=== PATIENT | female | born 1980 | race Caucasian/White ===

== ENCOUNTER 2020-02-15 23:13 | Emergency (ER) | payer SELFPAY ==
[2020-02-15 23:30] VITALS: BP 120/77; PULSE 91; RESP 16; TEMP 37.1; O2SAT 99; BMI 29.2
--- NOTE | 2020-02-15 23:46 | ED_ITS ---
HPI - Back Pain/Injury General: Chief Complaint: Back Pain/Injury Stated Complaint: fall/lower back pain Time Seen by Provider: 02/15/20 23:36 History of Present Illness: HPI Narrative: 39-year-old female patient presents to the emergency department with low back pain and right sciatica pain. She reports sustained a fall yesterday, she slipped on a step and fell down 3 stairs on her bottom. She reports pain is intense, difficulty with walking, she reports right leg weakness when standing or attempting to walk. She denies urinary or bladder incontinence. She states took ibuprofen and Tylenol for pain but has not been effective. She has history of lumbar disc disease. MD elicited complaint: back pain, back injury and fall Pertinent past history: prior back pain Onset (ago): day(s) (1) Timing: constant Severity: moderate Quality: dull, stabbing and aching Location: lumbar spine Radiation: buttocks (rt) and right upper leg Exacerbating factors: movement and walking Relieving factors: immobilization Context: fall Associated symptoms: Reports no associated symptoms; Deny abdominal pain, chills, dysuria, fever(s), nausea or vomiting Treatments prior to arrival: cold therapy and heat therapy Work related injury: No Review of Systems General: Reports: 10 or more systems reviewed and unremarkable except in HPI and below Const: Denies: fever(s), chills or diaphoresis Eyes: Denies: blurry vision or eye redness ENMT: Denies: throat pain, dental pain or disequilibrium Card: Denies: chest pain, palpitations or irregular heart rhythm Resp: Denies: dyspnea, productive cough, non-productive cough or wheezing GI: Denies: abdominal pain, nausea or vomiting : Denies: difficulty voiding or dysuria Musc: Reports: back pain and extremity pain (right posterior hip); Denies: neck pain Skin/Breast: Denies: rash or pruritus Neuro: Denies: headache(s), weakness in extremities or behavioral changes Tony/Lymph: Denies: easy bruising [facility] Female Reproductive History: Date of last menstrual period: 01/29/20 Physical Exam Const: COMMON NORMALS: no acute distress, patient oriented x3, healthy appearing and alert GENERAL APPEARANCE: cooperative, comfortable and well hydrated ORIENTATION/CONSCIOUSNESS: Yes oriented to person HENMT: COMMON NORMALS: normocephalic, Normal external nose present and moist oral mucous membranes HEAD & SCALP: normocephalic NOSE: Normal external nose present Eye: COMMON NORMALS: Equal, round and reactive pupils present and EOMs intact bilaterally GENERAL EYE: appearance normal, both eyes and all related structures PUPIL: Yes Equal, round and reactive pupils present Neck/C-Spine: COMMON NORMALS: full ROM and no lymphadenopathy GENERAL: Yes normal visual inspection and Yes trachea midline CERVICAL SPINE: Yes cervical ROM normal Lymph: LYMPHATIC: no lymphadenopathy noted Chest: COMMONS NORMALS: normal inspection of the chest Resp: COMMON NORMALS: normal respiratory effort and clear to auscultation bilaterally AUSCULTATION: clear to auscultation bilaterally Cardio: COMMON NORMALS: regular rhythm, S1 normal heart sound present, S2 normal heart sound present and Peripheral pulses 2+ throughout RHYTHM: regular rhythm HEART SOUNDS: S1 normal heart sound present and S2 normal heart sound present PERIPHERAL PULSES: Peripheral pulses 2+ throughout GI: COMMON NORMALS: Soft to palpation and non-tender INSPECTION: Yes normal to inspection AUSCULTATION: Yes normoactive bowel sounds PALPATION: Yes Soft to palpation : COMMON NORMALS: Yes no CVA tenderness BLADDER/KIDNEY EXAM: Yes no CVA tenderness Back/Pelvis: COMMON NORMALS: no CVA tenderness THORACIC SPINE/UPPER BACK: Yes normal to inspection and Yes thoracic ROM normal LUMBAR SPINE/LOWER BACK: Yes normal to inspection, Yes ROM limited, Yes lumbar spinal tenderness (midline, point) Lumbar spinal tenderness location: L2, L3, L4 and L5, Yes paraspinal muscle tenderness Lumbar paraspinal muscle tenderness: right and Yes straight leg raise positive right SACROILIAC JOINTS: Yes SI joint(s) abnormal SI joint details: tender to palpation and pain elicited by compression of iliac crest maneuver Extremity: COMMON NORMALS: normal to inspection and capillary refill normal Neuro: COMMON NORMALS: patient oriented x3 and no focal motor deficits SENSORIUM/ORIENTATION: Yes alert and Yes oriented to person SPEECH: speech normal GAIT: Yes Staggering gait present (secondary to pain) MONOFILAMENT EXAM PERFORMED: Yes MOTOR EXAM: Abnormal motor strength present (RLE 3/5; LLE 5/5) Psych: COMMON NORMALS: mental status grossly normal, Normal thought process present and cooperative ACTIVITY/MOTOR BEHAVIOR: Yes appropriate eye contact THOUGHT PROCESS: Normal thought process present Skin: COMMON NORMALS: no rashes or lesions noted and turgor normal GENERAL SKIN EXAM: no rashes or lesions noted and turgor normal Course ED course: 39-year-old female patient presents to the emergency department with low back pain. Fall was sustained yesterday, several stairs on her bottom, presented to the emergency department with worsening back pain today. Lumbar spine CT without acute fracture or disc disease. Results of CT lumbar spine and plan of care discussed with patient. She agrees to follow-up with her primary care physician in 7 days. Agrees to follow-up with emergency department if she develops loss of movement of the right leg, develops bowel or bladder incontinence. Vital Signs: Vital signs: Vital Signs Temperature 98.7 F 02/15/20 23:30 Pulse Rate 77 02/16/20 01:09 Respiratory Rate 14 02/16/20 01:09 Blood Pressure 118/64 02/16/20 01:09 Pulse Oximetry 100 02/16/20 01:09 MDM - Back Pain/Injury Differential Diagnosis: Differential diagnosis back pain/injury: Likely lumbar radiculopathy and sciatica Imaging Data^: Other CT: Radiologist's impression: [place] [address] CT Scan Report Signed Patient: Nelli Mcmahan #: [id number] : 1980Acct#:[id number] Age/Sex: 39 / FADM Date: 02/15/20 [facility] Attending Dr: Ordering Provider/Ordering MD: Zeynep Almaguer Date of Service: 02/15/20 Procedure(s): CT lumbar spine wo con* [id number] Accession Number(s): [id number] Report Number: [id number] PROCEDURE INFORMATION: Exam: CT Lumbar Spine Without Contrast Exam date and time: 02/15/2020 11:47 PM Age: 39 years old Clinical indication: Injury or trauma; Initial encounter; Blunt trauma (contusions or hematomas); Injury date: 02-14-20; Injury details: Fall down stairs yesterday; Additional info: Fall, lle weakness TECHNIQUE: Imaging protocol: Computed tomography images of the lumbar spine without contrast. Radiation optimization: All CT scans at this facility use at least one of these dose optimization techniques: automated exposure control; mA and/or kV adjustment per patient size (includes targeted exams where dose is matched to clinical indication); or iterative reconstruction. COMPARISON: No relevant prior studies available. RADIATION DOSE METRICS: Total DLP (mGy-cm): 2570.58 FINDINGS: Vertebrae: No visible fracture, subluxation, or dislocation. Discs/Spinal canal/Neural foramina: No significant disc protrusion. No severe spinal canal stenosis. No significant neural foraminal narrowing. Sacrum/coccyx: Small sacral bone island. Soft tissues: Unremarkable. CT/CT lumbar spine wo con* [id number] IMPRESSION: 1. No visible fracture, subluxation, or dislocation. 2. No visible traumatic disc herniation or spinal stenosis. Radiation Dose CTDIVOL = (mGy): DLP = 2570.58 (mGy-cm) Dictated By:Elias Oliver Signed By:Elias OliverSiobie Date/Time:02/16/2026 Discharge Plan Discharge Patient Disposition: Home Clinical Impression: Fall (on) (from) other stairs and steps, initial encounter Strain of lumbar region Qualifiers: Encounter type: initial encounter Qualified Code(s): S39.012A - Strain of muscle, fascia and tendon of lower back, initial encounter Sciatica Qualifiers: Laterality: right Qualified Code(s): M54.31 - Sciatica, right side Condition: Stable Prescriptions: New IBU 800 mg tablet 800 mg PO TID PRN (Reason: pain) Qty: 30 RF: 0 cyclobenzaprine 10 mg tablet 10 mg PO TID PRN (Reason: muscle spasm) Qty: 20 RF: 0 Discharge Orders: Discharge Order (Routine); Ordered 02/16/20 Ordered By: Zeynep Almaguer Discharge Diet: Usual diet Discharge Activity: Resume usual activity and Limit activity as instructed Patient Instructions: Sciatica (ED), Lumbar Radiculopathy (ED), Fall Prevention (ED) Activity Restrictions/Additional Instructions: No twisting or bending of the waist until better No lifting over 5 pounds Apply cool compresses/alternate with warm moist heat to the affected area as needed for pain Take ibuprofen with food May supplement with Tylenol, 1 g 3 times daily as needed for pain, do not exceed this dose You will need to follow-up with your primary care provider in 7 days, sooner if worse If you develop urinary or bowel incontinence, worsening back pain, inability to move your leg, you will need return to the emergency department immediately for further evaluation Stand Alone Forms: Work/School Release Discharge Date/Time: 02/16/20 01:11 Coding Level of Care Code ED Director [employer] Fwd Exam Comprehensive
[2020-02-16] MEDS: HYDROcodone-acetaminophen 5-325 mg Tablet 1 TAB PO (00:20)
[2020-02-16 01:09] VITALS: BP 118/64; PULSE 77; RESP 14; O2SAT 100
== END 2020-02-16 01:11 | disposition home or self-care (01) ==
PROVIDERS: Emergency Provider Nurse Practitioner Family
DX: S39.012A Strain of muscle, fascia and tendon of lower back, initial encounter (principal); M54.31 Sciatica, right side; W01.0XXA Fall on same level from slipping, tripping and stumbling without subsequent striking against object, initial encounter
CPT/HCPCS: 12345; 72131; 99281; 99283

== ENCOUNTER 2020-06-24 17:10 | Emergency (ER) | payer SELFPAY ==
[2020-06-24 17:16] VITALS: BP 152/91; PULSE 80; RESP 16; TEMP 36.8; O2SAT 100; BMI 28.3
--- NOTE | 2020-06-24 17:22 | ED_ITS ---
Documented by User: Lorenzo Day DO 06/25/20 06:13 HPI - Abdominal Pain General: Chief Complaint: Abdominal Pain Stated Complaint: SEVERE AB PAIN Time Seen by Provider: 06/24/20 17:22 History of Present Illness: HPI narrative: 40-year-old female comes in complaining of left pain in the groin medial to the inguinal crease. It radiates down the medial thigh to the level of the knee and then proximally across the hip around the buttock to the lower lumbar spine. He had her period a week ago seem to mostly resolved. She recently had her period which was largely normal for her. She previously had a tubal ligation. MD elicited complaint: other Pertinent past history: other (Ovarian cysts) Onset (ago): hour(s) Pain Consistency: constant Location: Groin Quality: stabbing and sharp Radiation: other (Right medial upper leg) Migration to: no migration Exacerbating factors: nothing Relieving factors: nothing Associated Symptoms: Reports nausea and poor appetite; Denies bloating, change in bowel habits, change in stool character, chills, coffee ground emesis, constipation, GI cramping, diarrhea, dyspepsia, dysuria, excessive flatus, fever(s), heartburn, hematochezia, hematuria, hematemesis, fecal incontinence, loose stools, melena, syncope and vomiting Related Data: Date of Last Menstrual Period: 06/23/20 Review of Systems Const: Denies: fever(s) or chills ENMT: Denies: throat pain, ear or mastoid pain, nasal discharge or nasal congestion Card: Denies: syncope Resp: Denies: dyspnea, productive cough or non-productive cough GI: Reports: nausea; Denies: vomiting, hematemesis, coffee ground emesis, heartburn, diarrhea, constipation, bloating, GI cramping, excessive flatus, fecal incontinence, change in bowel habits, change in stool character, hematochezia or melena : Denies: dysuria Skin/Breast: Denies: rash or pruritus PFSH ED PFSH: Surgical History (Updated 06/25/20 @ 06:10 by Lorenzo Day DO) H/O tubal ligation Female Reproductive History: Date of last menstrual period: 06/23/20 Physical Exam Const: COMMON NORMALS: no acute distress GENERAL APPEARANCE: cooperative and comfortable ORIENTATION/CONSCIOUSNESS: Yes awake, Yes oriented to person, Yes oriented to place and Yes oriented to time HENMT: COMMON NORMALS: normocephalic, atraumatic and hearing grossly normal bilaterally HEAD & SCALP: normocephalic and atraumatic Eye: COMMON NORMALS: Equal, round and reactive pupils present, EOMs intact bilaterally, conjunctivae normal and no scleral icterus CONJUNCTIVA: Yes conjunctivae normal PUPIL: Yes Equal, round and reactive pupils present Neck/C-Spine: COMMON NORMALS: full ROM, no lymphadenopathy, supple and no JVD Resp: COMMON NORMALS: normal respiratory effort, No retractions, No use of accessory muscles and clear to auscultation bilaterally AUSCULTATION: clear to auscultation bilaterally Cardio: COMMON NORMALS: no JVD, regular rate, regular rhythm and No murmurs present (Cardio) RATE: regular rate RHYTHM: regular rhythm GI: COMMON NORMALS: Soft to palpation and No hepatosplenomegaly present AUSCULTATION: Yes normoactive bowel sounds PALPATION: Yes Soft to palpation, No Tenderness to palpation present (GI), No Guarding due to palpation present (GI) and Yes No hepatosplenomegaly present Extremity: COMMON NORMALS: normal to inspection, capillary refill normal, no clubbing, cyanosis or edema, no calf tenderness and no pedal edema Neuro: SENSORIUM/ORIENTATION: Yes oriented to person, Yes oriented to place and Yes oriented to time MOTOR EXAM: 5/5 motor strength present throughout DEEP TENDON REFLEXES: Right patellar reflex intensity grade: 2+ and Left patellar reflex intensity grade: 2+ PLANTAR REFLEX: downgoing: bilateral and other: bilateral OTHER: Straight leg raising test is negative. Sensation lower extremities normal Skin: COMMON NORMALS: no rashes or lesions noted GENERAL SKIN EXAM: no rashes or lesions noted Course Vital Signs: Vital signs: Vital Signs Temperature 98.2 F 06/24/20 17:16 Pulse Rate 59 L 06/24/20 22:09 Respiratory Rate 18 06/24/20 22:09 Blood Pressure 103/69 06/24/20 22:09 Pulse Oximetry 98 06/24/20 22:09 MDM - Abdominal Pain MDM Narrative: Medical decision making narrative: Patient is concerned she has an ovarian cyst however her presentation is not really consistent with an ovarian cyst or even really pelvic pathology. Given her history we will go ahead and do a pelvic ultrasound. More concerned of her description of pain radiating from the buttock down around the hip and the medial portion of the right thigh down to the level of the knee with it being a lumbar nerve impingement. Pain medications given's imaging pelvic ultrasound and CT of the lumbar spine have been ordered. care turned over to Dr. Tai at change of shift see his notes for final diagnosis and disposition. Lab Data: Labs: Lab Results 06/24/20 06/24/20 06/24/20 Range/Units 17:50 17:50 17:50 WBC 7.5 (4.0-10.0) 10^3/ uL RBC 4.15 (4.1-5.3) 10^6/u L Hgb 9.8 L (11.5-15.3) g/dL Hct 32.7 L (37.0-47.0) % MCV 78.8 L (81-99) fL MCH 23.6 L (28.0-34.0) pg MCHC 30.0 (30.0-36.0) g/dL RDW 16.8 H (12.1-15.1) % Plt Count 356 (130-400) 10^3/c mm MPV 9.8 (7.4-10.4) fL Neut % (Auto) 44.1 % Lymph % (Auto) 46.2 % Posey % (Auto) 6.8 % Eos % (Auto) 1.9 % Baso % (Auto) 0.7 % Neut # (Auto) 3.32 (1.8-7.7) 10^3/u L Lymph # (Auto) 3.5 (0.8-4.8) 10^3/u L Posey # (Auto) 0.5 (0.2-0.9) 10^3/u L Eos # (Auto) 0.1 (0.0-0.8) 10^3/u L Baso # (Auto) 0.1 (0.0-0.1) 10^3/u L Nucleated RBC % (a uto) 0 % Nucleated RBCs # 0.0 /100WBC Sodium 142 (136-145) mmol/L Potassium 4.0 (3.5-5.1) mmol/L Chloride 109 H (98-107) mmol/L Carbon Dioxide 23 (22-29) mmol/L Anion Gap 14.0 (5-19) BUN 9 (6-20) mg/dL Creatinine 0.8 (0.5-0.9) mg/dL GFR Calculation 79.9 L (90-130) mL/min Glucose 95 (65-115) mg/dL Calculated Osmolal ity 292 (285-295) mOsm/k g Calcium 8.9 (8.5-10.5) mg/dL Total Bilirubin 0.2 (0.15-1.2) mg/dL AST 11 (0-32) U/L ALT 8 (0-33) U/L Alkaline Phosphata se 48 (35-105) IU/L Total Protein 6.3 L (6.6-8.7) g/dL Albumin 3.9 (3.5-5.2) g/dL Globulin 2.4 (1.3-4.6) g/dL HCG, Qual Negative (Negative) Urine Color (Yellow) Urine Appearance (CLEAR) Urine pH (5-7) Ur Specific Gravit y (1.005-1.030) Urine Protein (Negative) Urine Glucose (UA) (Normal) Urine Ketones (Negative) Urine Blood (Negative) Urine Nitrate (Negative) Urine Bilirubin (Negative) Urine Urobilinogen (Negative) mg/dL Ur Leukocyte Concetta ase (Negative) 06/24/20 Range/Units 18:47 WBC (4.0-10.0) 10^3/ uL RBC (4.1-5.3) 10^6/u L Hgb (11.5-15.3) g/dL Hct (37.0-47.0) % MCV (81-99) fL MCH (28.0-34.0) pg MCHC (30.0-36.0) g/dL RDW (12.1-15.1) % Plt Count (130-400) 10^3/c mm MPV (7.4-10.4) fL Neut % (Auto) % Lymph % (Auto) % Posey % (Auto) % Eos % (Auto) % Baso % (Auto) % Neut # (Auto) (1.8-7.7) 10^3/u L Lymph # (Auto) (0.8-4.8) 10^3/u L Posey # (Auto) (0.2-0.9) 10^3/u L Eos # (Auto) (0.0-0.8) 10^3/u L Baso # (Auto) (0.0-0.1) 10^3/u L Nucleated RBC % (a uto) % Nucleated RBCs # /100WBC Sodium (136-145) mmol/L Potassium (3.5-5.1) mmol/L Chloride (98-107) mmol/L Carbon Dioxide (22-29) mmol/L Anion Gap (5-19) BUN (6-20) mg/dL Creatinine (0.5-0.9) mg/dL GFR Calculation (90-130) mL/min Glucose (65-115) mg/dL Calculated Osmolal ity (285-295) mOsm/k g Calcium (8.5-10.5) mg/dL Total Bilirubin (0.15-1.2) mg/dL AST (0-32) U/L ALT (0-33) U/L Alkaline Phosphata se (35-105) IU/L Total Protein (6.6-8.7) g/dL Albumin (3.5-5.2) g/dL Globulin (1.3-4.6) g/dL HCG, Qual (Negative) Urine Color Straw (Yellow) Urine Appearance Clear (CLEAR) Urine pH 5 (5-7) Ur Specific Gravit y 1.010 (1.005-1.030) Urine Protein Neg (Negative) Urine Glucose (UA) Norm (Normal) Urine Ketones Negative (Negative) Urine Blood Neg (Negative) Urine Nitrate Negative (Negative) Urine Bilirubin Neg (Negative) Urine Urobilinogen Norm (Negative) mg/dL Ur Leukocyte Concetta ase Negative (Negative) Discharge Plan Discharge Patient Disposition: Home Clinical Impression: Abdominal pain Qualifiers: Abdominal location: generalized Qualified Code(s): R10.84 - Generalized abdominal pain Condition: Stable Prescriptions: [place] 5-325 mg tablet 1 tab PO Q6H PRN (Reason: pain) Qty: 14 RF: 0 ondansetron 4 mg tablet,disintegrating 4 mg PO Q6H PRN (Reason: nausea and vomiting) Qty: 14 RF: 0 No Action Tylenol 325 mg Capsule 325 mg PO BID PRN (Reason: Pain) RF: 0 IBU 800 mg tablet 800 mg PO BID PRN (Reason: pain) RF: 0 Discharge Orders: Discharge ED (Routine); Ordered 06/24/20 Ordered By: Sanchez Tai Discharge Diet: Advance as tolerated Discharge Activity: Resume usual activity Patient Instructions: Abdominal Pain (ED) Coding Level of Care Code ED [employer] Operator for Chg Fwd Exam Comprehensive Documented by User: Sanchez Tai MD 06/24/20 21:41 HPI - Abdominal Pain General: Chief Complaint: Abdominal Pain Stated Complaint: SEVERE AB PAIN Time Seen by Provider: 06/24/20 17:22 [facility] ED PFSH: Surgical History (Updated 06/25/20 @ 06:10 by Lorenzo Day DO) H/O tubal ligation Physical Exam Const: COMMON NORMALS: no acute distress, patient oriented x3 and healthy appearing HENMT: COMMON NORMALS: normocephalic and atraumatic HEAD & SCALP: normocephalic and atraumatic Eye: COMMON NORMALS: Equal, round and reactive pupils present and EOMs intact bilaterally PUPIL: Yes Equal, round and reactive pupils present Neck/C-Spine: COMMON NORMALS: full ROM and supple Chest: COMMONS NORMALS: normal inspection of the chest and normal palpation of entire chest wall Resp: COMMON NORMALS: normal respiratory effort, No retractions, No use of accessory muscles and clear to auscultation bilaterally AUSCULTATION: clear to auscultation bilaterally Cardio: COMMON NORMALS: regular rate, regular rhythm and No murmurs present (Cardio) RATE: regular rate RHYTHM: regular rhythm GI: COMMON NORMALS: Normal to inspection, nondistended, normoactive bowel sounds present, Soft to palpation and no masses PALPATION: Yes Soft to palpation OTHER: Slight right lower quadrant tenderness Extremity: COMMON NORMALS: normal to inspection and full ROM Neuro: COMMON NORMALS: patient oriented x3, moves all extremities and no focal motor deficits Psych: COMMON NORMALS: mental status grossly normal, Normal thought process present and cooperative THOUGHT PROCESS: Normal thought process present Skin: COMMON NORMALS: no rashes or lesions noted and no wounds GENERAL SKIN EXAM: no rashes or lesions noted Course Vital Signs: Vital signs: Vital Signs Temperature 98.2 F 06/24/20 17:16 Pulse Rate 59 L 06/24/20 22:09 Respiratory Rate 18 06/24/20 22:09 Blood Pressure 103/69 06/24/20 22:09 Pulse Oximetry 98 06/24/20 22:09 MDM - Abdominal Pain MDM Narrative: Medical decision making narrative: Patient presents with abdominal pain. There was concern of possible torsion at first. Patient was seen by OB and history exam is just not consistent had another ultrasound done that was transabdominal. Was able to find the ovary and found good blood flow. Patient's CT here showed no acute findings. Her pain is improved. She has no sign of acute surgical cause. She is stable for discharge and is to follow-up P CP and return if worsening. Lab Data: Labs: Lab Results 06/24/20 06/24/20 06/24/20 Range/Units 17:50 17:50 17:50 WBC 7.5 (4.0-10.0) 10^3/ uL RBC 4.15 (4.1-5.3) 10^6/u L Hgb 9.8 L (11.5-15.3) g/dL Hct 32.7 L (37.0-47.0) % MCV 78.8 L (81-99) fL MCH 23.6 L (28.0-34.0) pg MCHC 30.0 (30.0-36.0) g/dL RDW 16.8 H (12.1-15.1) % Plt Count 356 (130-400) 10^3/c mm MPV 9.8 (7.4-10.4) fL Neut % (Auto) 44.1 % Lymph % (Auto) 46.2 % Posey % (Auto) 6.8 % Eos % (Auto) 1.9 % Baso % (Auto) 0.7 % Neut # (Auto) 3.32 (1.8-7.7) 10^3/u L Lymph # (Auto) 3.5 (0.8-4.8) 10^3/u L Posey # (Auto) 0.5 (0.2-0.9) 10^3/u L Eos # (Auto) 0.1 (0.0-0.8) 10^3/u L Baso # (Auto) 0.1 (0.0-0.1) 10^3/u L Nucleated RBC % (a uto) 0 % Nucleated RBCs # 0.0 /100WBC Sodium 142 (136-145) mmol/L Potassium 4.0 (3.5-5.1) mmol/L Chloride 109 H (98-107) mmol/L Carbon Dioxide 23 (22-29) mmol/L Anion Gap 14.0 (5-19) BUN 9 (6-20) mg/dL Creatinine 0.8 (0.5-0.9) mg/dL GFR Calculation 79.9 L (90-130) mL/min Glucose 95 (65-115) mg/dL Calculated Osmolal ity 292 (285-295) mOsm/k g Calcium 8.9 (8.5-10.5) mg/dL Total Bilirubin 0.2 (0.15-1.2) mg/dL AST 11 (0-32) U/L ALT 8 (0-33) U/L Alkaline Phosphata se 48 (35-105) IU/L Total Protein 6.3 L (6.6-8.7) g/dL Albumin 3.9 (3.5-5.2) g/dL Globulin 2.4 (1.3-4.6) g/dL HCG, Qual Negative (Negative) Urine Color (Yellow) Urine Appearance (CLEAR) Urine pH (5-7) Ur Specific Gravit y (1.005-1.030) Urine Protein (Negative) Urine Glucose (UA) (Normal) Urine Ketones (Negative) Urine Blood (Negative) Urine Nitrate (Negative) Urine Bilirubin (Negative) Urine Urobilinogen (Negative) mg/dL Ur Leukocyte Concetta ase (Negative) 06/24/20 Range/Units 18:47 WBC (4.0-10.0) 10^3/ uL RBC (4.1-5.3) 10^6/u L Hgb (11.5-15.3) g/dL Hct (37.0-47.0) % MCV (81-99) fL MCH (28.0-34.0) pg MCHC (30.0-36.0) g/dL RDW (12.1-15.1) % Plt Count (130-400) 10^3/c mm MPV (7.4-10.4) fL Neut % (Auto) % Lymph % (Auto) % Posey % (Auto) % Eos % (Auto) % Baso % (Auto) % Neut # (Auto) (1.8-7.7) 10^3/u L Lymph # (Auto) (0.8-4.8) 10^3/u L Posey # (Auto) (0.2-0.9) 10^3/u L Eos # (Auto) (0.0-0.8) 10^3/u L Baso # (Auto) (0.0-0.1) 10^3/u L Nucleated RBC % (a uto) % Nucleated RBCs # /100WBC Sodium (136-145) mmol/L Potassium (3.5-5.1) mmol/L Chloride (98-107) mmol/L Carbon Dioxide (22-29) mmol/L Anion Gap (5-19) BUN (6-20) mg/dL Creatinine (0.5-0.9) mg/dL GFR Calculation (90-130) mL/min Glucose (65-115) mg/dL Calculated Osmolal ity (285-295) mOsm/k g Calcium (8.5-10.5) mg/dL Total Bilirubin (0.15-1.2) mg/dL AST (0-32) U/L ALT (0-33) U/L Alkaline Phosphata se (35-105) IU/L Total Protein (6.6-8.7) g/dL Albumin (3.5-5.2) g/dL Globulin (1.3-4.6) g/dL HCG, Qual (Negative) Urine Color Straw (Yellow) Urine Appearance Clear (CLEAR) Urine pH 5 (5-7) Ur Specific Gravit y 1.010 (1.005-1.030) Urine Protein Neg (Negative) Urine Glucose (UA) Norm (Normal) Urine Ketones Negative (Negative) Urine Blood Neg (Negative) Urine Nitrate Negative (Negative) Urine Bilirubin Neg (Negative) Urine Urobilinogen Norm (Negative) mg/dL Ur Leukocyte Concetta ase Negative (Negative) Imaging Data ^: Other CT: Radiologist's impression: [facility] [place] [address] CT Scan Report Signed Patient: Ania Mcmahan Unit #: [id number] : 1980 Age/Sex: 40 / F ADM Date: 06/24/20 Loc: ER Room/Bed: Attending Dr: Ordering Provider/Ordering MD: Lorenzo Day DO Date of Service: 06/24/20 Procedure(s): CT lumbar spine wo con* [id number] Accession Number(s): [id number] Report Number: [id number] PROCEDURE INFORMATION: Exam: CT Lumbar Spine Without Contrast Exam date and time: 06/24/2020 5:42 PM Age: 40 years old Clinical indication: Low back pain; Patient HX: C/O lbp w rle radiculopathy; Additional info: Pain with radiculopathy TECHNIQUE: Imaging protocol: Computed tomography images of the lumbar spine without contrast. Total images: 405 Radiation optimization: All CT scans at this facility use at least one of these dose optimization techniques: automated exposure control; mA and/or kV adjustment per patient size (includes targeted exams where dose is matched to clinical indication); or iterative reconstruction. COMPARISON: CT lumbar spine wo con* [id number] 02/15/2020 11:52 PM RADIATION DOSE METRICS: Total DLP (mGy-cm): 2302.58 FINDINGS: Vertebrae: No visible active or acute osseous pathology. No visible spondylolysis or spondylolisthesis. No visible significant facet disease. Minimal spondylosis deformans T12 and L1. Discs/Spinal canal/Neural foramina: No visible herniated nucleus pulposis or significant posterior annular disc bulge. No significant disc protrusion. No severe spinal canal stenosis. No significant neural foraminal narrowing. Sacrum/coccyx: Small sacral bone island. Soft tissues: Unremarkable. CT/CT lumbar spine wo con* [id number] IMPRESSION: No acute findings. US: Radiologist's impression: [address] [place] [address] Ultrasound Report Signed with Addenda Patient: Ania Mcmahan Unit #: [id number] : 1980 327 Age/Sex: 40 / F ADM Date: 06/24/20 Loc: ER Room/Bed: Attending Dr: Ordering Provider/Ordering MD: Lorenzo Day DO Date of Service: 06/24/20 Procedure(s): US pelvic with transvaginal Accession Number(s): [id number] Report Number: [id number] ADDENDUM US/US pelvic with transvaginal THIS REPORT CONTAINS FINDINGS THAT MAY BE CRITICAL TO PATIENT CARE. The findings were verbally communicated via telephone conference with Dr. Tai at 6:55 PM [employer] B[employer] ASSEMBLER on 06/24/2020. The findings were acknowledged and understood. Addendum Dictated By: Elias Oliver Addendum Signed By: Elias Oliver Signed Date/Time: 06/24/20 190 8 Addendum Cosigned By: PROCEDURE INFORMATION: Exam: US Nonobstetric Pelvis; Complete Exam date and time: 06/24/2020 6:28 PM Age: 40 years old Clinical indication: Pelvic pain TECHNIQUE: Imaging protocol: Transabdominal pelvic nonobstetric ultrasound. Complete exam. Real time ultrasound with image documentation. Total images: 58 COMPARISON: No relevant prior studies available. FINDINGS: Uterus/cervix: Anteverted multiparous appearing uterus dimensions 7.8 cm x 4.3 cm x 5.2 cm. Endometrial stripe is normal. No endometrial fluid. Endometrial thickness 8 mm in maximum diameter. Right adnexa: No vascular flow to color or Doppler assessment. Potential right ovarian torsion; although, this would be unusual without the presence of free fluid in the cul-de-sac. No visible right ovarian dominant cyst or mass. Dimensions of the right ovary 29 mm x 21 mm x 26 mm. No visible right adnexal mass or cystic lesion. Left adnexa: Left ovary is normal. No mass. Normal blood flow. Left ovary measures 28 mm x 22 mm x 24 mm. No visible adnexal mass or cystic lesion. Intraperitoneal space: No intraperitoneal fluid. Urinary bladder: Not imaged. US/US pelvic with transvaginal IMPRESSION: No vascular flow to color or Doppler assessment right ovary. Discharge Plan Discharge Patient Disposition: Home Clinical Impression: Abdominal pain Qualifiers: Abdominal location: generalized Qualified Code(s): R10.84 - Generalized abdominal pain Condition: Stable Prescriptions: [place] 5-325 mg tablet 1 tab PO Q6H PRN (Reason: pain) Qty: 14 RF: 0 ondansetron 4 mg tablet,disintegrating 4 mg PO Q6H PRN (Reason: nausea and vomiting) Qty: 14 RF: 0 No Action Tylenol 325 mg Capsule 325 mg PO BID PRN (Reason: Pain) RF: 0 IBU 800 mg tablet 800 mg PO BID PRN (Reason: pain) RF: 0 Discharge Orders: Discharge ED (Routine); Ordered 06/24/20 Ordered By: Sanchez Tai Discharge Diet: Advance as tolerated Discharge Activity: Resume usual activity Patient Instructions: Abdominal Pain (ED) Coding Level of Care Code ED [employer] Drill Operator for Thomas Fweder Exam Comprehensive
--- NOTE | 2020-06-24 17:29 | USR_ITS ---
PROCEDURE INFORMATION: Exam: US Nonobstetric Pelvis; Complete Exam date and time: 06/24/2020 6:28 PM Age: 40 years old Clinical indication: Pelvic pain TECHNIQUE: Imaging protocol: Transabdominal pelvic nonobstetric ultrasound. Complete exam. Real time ultrasound with image documentation. Total images: 58 COMPARISON: No relevant prior studies available. FINDINGS: Uterus/cervix: Anteverted multiparous appearing uterus dimensions 7.8 cm x 4.3 cm x 5.2 cm. Endometrial stripe is normal. No endometrial fluid. Endometrial thickness 8 mm in maximum diameter. Right adnexa: No vascular flow to color or Doppler assessment. Potential right ovarian torsion; although, this would be unusual without the presence of free fluid in the cul-de-sac. No visible right ovarian dominant cyst or mass. Dimensions of the right ovary 29 mm x 21 mm x 26 mm. No visible right adnexal mass or cystic lesion. Left adnexa: Left ovary is normal. No mass. Normal blood flow. Left ovary measures 28 mm x 22 mm x 24 mm. No visible adnexal mass or cystic lesion. Intraperitoneal space: No intraperitoneal fluid. Urinary bladder: Not imaged. US/US pelvic with transvaginal IMPRESSION: No vascular flow to color or Doppler assessment right ovary.
--- NOTE | 2020-06-24 17:39 | CTR_ITS ---
PROCEDURE INFORMATION: Exam: CT Lumbar Spine Without Contrast Exam date and time: 06/24/2020 5:42 PM Age: 40 years old Clinical indication: Low back pain; Patient HX: C/O lbp w rle radiculopathy; Additional info: Pain with radiculopathy TECHNIQUE: Imaging protocol: Computed tomography images of the lumbar spine without contrast. Total images: 405 Radiation optimization: All CT scans at this facility use at least one of these dose optimization techniques: automated exposure control; mA and/or kV adjustment per patient size (includes targeted exams where dose is matched to clinical indication); or iterative reconstruction. COMPARISON: CT lumbar spine wo con* [id number] 02/15/2020 11:52 PM RADIATION DOSE METRICS: Total DLP (mGy-cm): 2302.58 FINDINGS: Vertebrae: No visible active or acute osseous pathology. No visible spondylolysis or spondylolisthesis. No visible significant facet disease. Minimal spondylosis deformans T12 and L1. Discs/Spinal canal/Neural foramina: No visible herniated nucleus pulposis or significant posterior annular disc bulge. No significant disc protrusion. No severe spinal canal stenosis. No significant neural foraminal narrowing. Sacrum/coccyx: Small sacral bone island. Soft tissues: Unremarkable. CT/CT lumbar spine wo con* [id number] IMPRESSION: No acute findings. Radiation Dose CTDIVOL = (mGy): DLP = 2302.58 (mGy-cm)
[2020-06-24 18:03] LABS: Basophils # 0.1 10^3/uL (0.0-0.1); Basophils % 0.7 %; Eosinophils # 0.1 10^3/uL (0.0-0.8); Eosinophils % 1.9 %; Hematocrit 32.7 % (37.0-47.0); Hemoglobin 9.8 g/dL (11.5-15.3); Lymphocytes # 3.5 10^3/uL (0.8-4.8); Lymphocytes % 46.2 %; Mean Corpuscular Hemoglobin 23.6 pg (28.0-34.0); Mean Corpuscular Volume 78.8 fL (81-99); Mean Platelet Volume 9.8 fL (7.4-10.4); Monocytes # 0.5 10^3/uL (0.2-0.9); Monocytes % 6.8 %; Neutrophils # 3.32 10^3/uL (1.8-7.7); Neutrophils % 44.1 %; Nucleated Red Blood Cells % 0 %; Platelet Count 356 10^3/cmm (130-400); Red Blood Count 4.15 10^6/uL (4.1-5.3); Red Cell Distribution Width 16.8 % (12.1-15.1); White Blood Count 7.5 10^3/uL (4.0-10.0)
[2020-06-24 18:11] VITALS: RESP 18
[2020-06-24] MEDS: morphine 4 mg/mL SDV 1 mL IVP ×2 (18:11→21:23)
[2020-06-24] MEDS: ketorolac 30 mg/mL INJ IVP (18:11)
[2020-06-24 18:12] LABS: HCG, Serum Qual Negative (Negative)
[2020-06-24] MEDS: orphenadrine 30 mg/mL Inj 2 mL 60 MG IVP (18:12)
[2020-06-24] MEDS: ondansetron 2 mg/ML SDV 2 mL 4 MG IVP (18:12)
[2020-06-24 18:23] LABS: Alanine Aminotransferase 8 U/L (0-33); Albumin Level 3.9 g/dL (3.5-5.2); Alkaline Phosphatase 48 IU/L (35-105); Aspartate Amino Transferase 11 U/L (0-32); Blood Urea Nitrogen 9 mg/dL (6-20); Calcium 8.9 mg/dL (8.5-10.5); Carbon Dioxide 23 mmol/L (22-29); Chloride 109 mmol/L (98-107); Globulin 2.4 g/dL (1.3-4.6); Glomerular Filtration Rate 79.9 mL/min (90-130); Glucose 95 mg/dL (65-115); Osmolality Calculated 292 mOsm/kg (285-295); Sodium 142 mmol/L (136-145); Total Bilirubin 0.2 mg/dL (0.15-1.2); Total Protein 6.3 g/dL (6.6-8.7)
--- NOTE | 2020-06-24 18:45 | PC.NURSE ---
ultrasound completed patient tolerated well.
[2020-06-24 18:49] LABS: Add Urine Microscopic? NO
[2020-06-24 18:54] LABS: Bilirubin Urine Neg (Negative); Blood Urine Neg (Negative); Glucose Urine UA Norm (Normal); Ketones Urine Negative (Negative); Leukocyte Esterase Urine Negative (Negative); Nitrate Urine Negative (Negative); Protein Urine Neg (Negative); Urine Appearance Clear (CLEAR); Urine Color Straw (Yellow); Urobilinogen Urine Norm (Negative); pH Urine 5 (5-7)
[2020-06-24 19:02] VITALS: BP 121/67; PULSE 59; O2SAT 98
--- NOTE | 2020-06-24 20:50 | CTR_ITS ---
PROCEDURE INFORMATION: Exam: CT Abdomen And Pelvis With Contrast Exam date and time: 06/24/2020 8:51 PM Age: 40 years old Clinical indication: Abdominal pain; Localized; Right lower quadrant (rlq); Prior surgery; Surgery type: Gb. Tubal. ; Patient HX: Rlq pain; Additional info: Abd pain TECHNIQUE: Imaging protocol: Computed tomography of the abdomen and pelvis with intravenous contrast. Total images: 249 Radiation optimization: All CT scans at this facility use at least one of these dose optimization techniques: automated exposure control; mA and/or kV adjustment per patient size (includes targeted exams where dose is matched to clinical indication); or iterative reconstruction. Contrast material: OMNI 300; Contrast volume: 95 ml; Contrast route: INTRAVENOUS (IV); COMPARISON: US pelvic with transvaginal 06/24/2020 6:15 PM RADIATION DOSE METRICS: Total DLP (mGy-cm): 887.29 FINDINGS: Lungs: Limited assessment of the lung bases fails to reveal evidence for active cardiopulmonary process. Liver: Unremarkable. No mass. Gallbladder and bile ducts: Status post cholecystectomy. Pancreas: Normal. No ductal dilation. Spleen: Normal. No splenomegaly. Adrenal glands: Normal. No mass. Kidneys and ureters: No hydronephrosis or perinephric fluid. No visible nephrolithiasis. No visible ureterolithiasis. Rare small simple renal cortical cysts bilaterally. Dominant on the left measures only 7 mm. No follow-up recommended. Stomach and bowel: Assessment of the hollow viscus fails to reveal evidence of active or acute pathology. Nonobstructed bowel pattern. No visible acute diverticulitis. No visible adynamic or reactive ileus. Appendix: The appendix is visualized and appears noninflamed. Intraperitoneal space: No visible pneumoperitoneum. No visible intraperitoneal ascites. No visible evidence of mesenteric lymphadenitis or active mesenteritis/panniculitis. Vasculature: Unremarkable. No abdominal aortic aneurysm. Lymph nodes: No current visible evidence of active mesenteric or retroperitoneal lymphadenopathy. Urinary bladder: Urinary bladder unremarkable. Reproductive: Unremarkable as visualized. Bones/joints: No visible evidence of active or acute osseous pathology. Soft tissues: Unremarkable. CT/CT abdomen pelvis w con* [id number] IMPRESSION: Currently no visible evidence of active or acute abdominal or pelvic pathologic process. COMMENTS: Consistent with the [employer]'s Incidental Findings Committee white paper (J Am Moises Radiol 2018): Any incidental renal lesion less than 1 cm or classified as too small to characterize, or any incidental cystic renal lesion characterized as simple-appearing, is likely benign. No follow-up imaging is recommended for these lesions per consensus recommendations based on imaging criteria. Radiation Dose CTDIVOL = (mGy): DLP = 887.29 (mGy-cm)
[2020-06-24] MEDS: iohexol 300 mg/mL 100 mL Btl IV (20:58)
--- NOTE | 2020-06-24 21:01 | P.CONIM_ITS ---
Providers/Reason For Consult Consulting Physican/Specialty*: selena OB-STRUCTURAL TEST ENGINEER Reason for Consult*: Possible right ovarian torsion History of Present Illness History of Present Illness HISTORY AND PHYSICAL: Consult for right-sided lower abdominal pain-possible ovarian torsion Chief Complaint: Lower abdominal pain History of present illness: Ms. Mcmahan is a 40 year old G3P 3003 with LMP 06/18/2020 who presented to the ER on 06/24/2020 with reports of acute onset lower abdominal pain. She states that she was doing fine and took Tylenol and ibuprofen as she does every morning for her lower back pain for herniated disc. 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 This pain did not get better and she tried to go home and rest however as it persisted she presented to the emergency room for further evaluation. She was evaluated by the emergency room doctor Dr. Garcia and ultrasound ordered showed no flow to the right ovary and as a result I was consulted. Remainder of ultrasound was essentially within normal limits without any free fluid or signs of a recently ruptured cyst or presence of any cyst on bilateral ovaries. Uterus was also within normal limits Obstetric History: X 3 Gynecological history: Menstrual :-Menarche at age 13 with regular 30-day cycles lasting for 3 to 5 days Pap smear:-Denies abnormal Pap smears in the past, last Pap smear was in 2009 and was normal per patient Sexually transmitted infections:-Denies Contraception:-Has used Depo-Provera and control pills in the past for contraception, has not used any hormonal contraception since her tubal ligation Past medical history: She denies any medical problems and denies history of diabetes, asthma, hypertension, seizures, DVT/PE. She follows up with her primary care provider in [place] Past surgical history: Has had a tubal ligation via mini laparotomy with a suprapubic incision Allergies: Denies allergies to any medication Current Medications: Tylenol and ibuprofen as needed for back pain Social History: Alcohol use:-Denies Tobacco use:-Does vape right now. 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 Other pertinent positives and negatives have been documented in history of present illness. Physical exam: Weight: 165 lbs BMI: 28.3 kg/m2 Blood pressure: 103/69 mm of mercury Pulse: 59 beats per minute Respiration: 18 breaths per minute General: well developed, well nourished, looks uncomfortable Neuro/Psych: alert, oriented to time, place and person. Neck: No thyromegaly Heart: S1-S2 heard, regular rate and rhythm. Lungs: Clear to auscultation bilaterally. Breast: Deferred Legs: No pedal edema no calf tenderness. Negative Homans sign Back: No CVA tenderness Skin: Normal over abdomen Lymph nodes: No inguinal lymph nodes Pelvic exam: External genitalia: Appears normal, no lesions, shaved hair Urethral meatus: Normal size, normal location Urethra: Nontender, no masses Bladder: Nontender Vagina: Appears normal, normal estrogen, no lesion, no abnormal discharge Cervix: Appears normal, no CMT, no discharge Uterus: 6 to 8 weeks, anteverted, mobile, nontender Adnexa:, No adnexal masses or tenderness. Point tenderness over the right inguinal ligament Perineum/anus: Intact Rectum: Deferred Sonogram: Initial sonogram done showed normal uterus and ovaries bilaterally without adnexal masses or free fluid. Normal flow to the left ovary was identified however blood flow to the right ovary was not visualized. Drink Mixer noted that ovary was posterior to the uterus and images were not very clear. Only transvaginal images were obtained. --- Repeat images were performed while I was in the room and normal blood flow to right ovary was visualized. Assessment 1) acute right lower abdominal pain: -Discussed findings of ultrasound with Ms. Mcmahan. Discussed that it is unu sual although it can happen where the ovary can torsed without a large cyst or lesion. Discussed this is unlikely without any particular inciting factor. Discussed results of the repeat ultrasound that did show normal blood flow to the ovary. Discussed given normal blood flow and essentially otherwise normal pelvic ultrasound I do not think her pain is of gynecological origin. It may be musculoskeletal and I will leave evaluation of this to the emergency room providers. -Discussed that she has not had a Pap smear in over 10 years and I would strongly recommend this be taken care of to prevent cervical cancer in the future. She understands the importance of this and will try to follow-up with her provider in [place]. She was offered to have follow-up with me but currently declines this. Meds/Allergies Home Medications and Allergies Home Medications Medication Instructions Recorded Confirmed Last Taken Type acetaminophen [Tylenol] 325 mg PO BID PRN 06/24/20 06/24/20 Unknown History hydrocodone-acetaminophen [[place]] 1 tab PO Q6H PRN #14 tab 06/24/20 Unknown Rx ibuprofen [IBU] 800 mg PO BID PRN 06/24/20 06/24/20 Unknown History ondansetron 4 mg PO Q6H PRN #14 tab 06/24/20 Unknown Rx Allergies Allergy/AdvReac Type Severity Reaction Status Date / Time No Known Allergies Allergy Verified 02/15/20 23:30 Current Medications Current Medications Generic Name Dose Route Start Last Admin Trade Name Freq PRN Reason Stop Dose Admin Iohexol 0 ml 06/24/20 20:58 06/24/20 20:58 Iohexol 300 Mg/Ml 100 Ml Btl IV 06/24/20 20:59 95 ml ONCE ONE Administration PFSH Acute PFSH: Surgical History (Updated 06/25/20 @ 06:10 by Lorenzo Day DO) H/O tubal ligation Female Reproductive History: Date of last menstrual period: 06/23/20 Vitals/I&O/Wt Last Vital Signs Temp 98.2 F 06/24/20 17:16 Pulse 59 L 06/24/20 19:02 Resp 18 06/24/20 18:11 BP 121/67 06/24/20 19:02 Pulse Ox 98 06/24/20 19:02 Weight last 48 hrs Weight 165 lb Coding Level of Care Code Acute Latex Caster for Thomas Cruz
[2020-06-24 21:24] VITALS: BP 113/82; PULSE 67; RESP 18; O2SAT 98
[2020-06-24 22:09] VITALS: BP 103/69; PULSE 59; RESP 18; O2SAT 98
== END 2020-06-24 22:09 | disposition home or self-care (01) ==
PROVIDERS: Family Medicine; Emergency Provider Emergency Medicine
DX: R10.84 Generalized abdominal pain (principal)
CPT/HCPCS: 12345; 72131; 74177; 76830; 76856; 80053; 81003; 84703; 85025; 96374; 96375; 96376; 99283; J1885; J2270; J2360; J2405; Q9967

== ENCOUNTER 2022-10-31 17:42 | Emergency (ER) | payer SELFPAY ==
[2022-10-31 18:52] VITALS: BP 139/93; PULSE 90; RESP 16; TEMP 37; O2SAT 100; BMI 24.0
[2022-10-31 19:09] LABS: HCG Qualitative Urine. Negative (Negative)
--- NOTE | 2022-10-31 19:59 | ED_ITS ---
HPI - Female Genitourinary General: Chief complaint: Urogenital-Female Stated complaint: possible UTI Time Seen by Provider: 10/31/22 19:30 History of Present Illness: 42-year-old female comes in today for complaints of urinary discomfort. Patient reports pain with urination. Patient also notes some swelling of the urethra. Patient reports that last month at the end of her period she noticed similar symptoms, and then now at the end of this. She is also having similar symptoms. Patient appears nontoxic. Patient appears in mild to moderate pain. Associated symptoms: Deny nausea Review of Systems Const: Denies: fever(s) Card: Denies: chest pain Resp: Denies: dyspnea GI: Denies: nausea or vomiting : Reports: dysuria Musc: Denies: neck pain or back pain Skin/Breast: Denies: rash or pruritus Neuro: Denies: numbness in extremities PFSH ED PFSH: Surgical History (Updated 06/25/20 @ 06:10 by Lorenzo Day DO) H/O tubal ligation Physical Exam Const: COMMON NORMALS: alert HENMT: COMMON NORMALS: normocephalic HEAD & SCALP: normocephalic Neck/C-Spine: COMMON NORMALS: full ROM Resp: COMMON NORMALS: normal respiratory effort and clear to auscultation bilaterally AUSCULTATION: clear to auscultation bilaterally Cardio: COMMON NORMALS: regular rate and regular rhythm RATE: regular rate RHYTHM: regular rhythm GI: COMMON NORMALS: Soft to palpation PALPATION: Yes Soft to palpation : EXTERNAL FEMALE EXAM: No urethral discharge, Yes tender and Yes other (Increased swelling of the urethra) Extremity: COMMON NORMALS: normal to inspection Neuro: SENSORIUM/ORIENTATION: Yes alert Skin: COMMON NORMALS: turgor normal GENERAL SKIN EXAM: turgor normal Course Vital Signs: Vital signs: Vital Signs Temperature 98.6 F 10/31/22 18:52 Pulse Rate 75 10/31/22 21:00 Respiratory Rate 16 10/31/22 21:00 Blood Pressure 105/66 10/31/22 21:00 Pulse Oximetry 100 10/31/22 21:00 Oxygen Delivery Me thod Room Air 10/31/22 18:52 MDM - Female Medical Decision Making 42-year-old female comes in today for complaints of painful urination and tenderness of the urethra. Patient appears nontoxic. Patient appears in no acute distress. Patient just completed her period. Differential diagnosis includes but not limited to UTI, urethritis, STI, PID, vaginitis. Wet prep noted no clue cells or trichomonas. Urinalysis had increasing red blood cells and white blood cells. Concern for vaginitis versus PID due to patient's significance of pain. Patient was given 500 mg of Rocephin IM and doxycycline to follow-up for 7 days. Patient was notified that she should follow-up with primary care in 1 week for final results of cultures and consideration of treatment of partner. Patient reported understanding and agreed to plan. Lab Data Laboratory Results HCG, Qual Negative (Negative) 10/31/22 18:56 Urine Color Yellow (Yellow) 10/31/22 18:56 Urine Appearance Sl cloudy (CLEAR) A 10/31/22 18:56 Urine pH 6 (5-7) 10/31/22 18:56 Ur Specific [place] 1.020 (1.005-1.030) 10/31/22 18:56 Urine Protein 1+ (Negative) H 10/31/22 18:56 Urine Glucose (UA) Norm (Normal) 10/31/22 18:56 Urine Ketones Negative (Negative) 10/31/22 18:56 Urine Blood 2+ (Negative) H 10/31/22 18:56 Urine Nitrate Negative (Negative) 10/31/22 18:56 Urine Bilirubin Neg (Negative) 10/31/22 18:56 Urine Urobilinogen Norm mg/dL (Negative) 10/31/22 18:56 Ur Leukocyte Esterase Negative (Negative) 10/31/22 18:56 Urine RBC 10-15 /hpf (0-2) H 10/31/22 18:56 Urine WBC 10-15 /hpf (0-5) H 10/31/22 18:56 Ur Squamous Epith Cells 0-4 /hpf (0-5) H 10/31/22 18:56 Amorphous Sediment Not Reportable 10/31/22 18:56 Urine Bacteria 1+ /hpf (NONE) H 10/31/22 18:56 Urine Mucus 2+ /hpf 10/31/22 18:56 Discharge Plan Discharge Patient Disposition: Home Clinical Impression: Urethritis Condition: Stable Prescriptions: New doxycycline monohydrate 100 mg capsule 100 mg PO BID Qty: 14 0RF hydrocodone-acetaminophen 5-325 mg tablet 1 tab PO Q8H PRN (Reason: pain (scale score 7-10)) Qty: 6 0RF No Action Tylenol 325 mg Capsule 325 mg PO BID PRN (Reason: Pain) IBU 800 mg tablet 800 mg PO BID PRN (Reason: pain) [place] 5-325 mg tablet 1 tab PO Q6H PRN (Reason: pain) Qty: 14 0RF ondansetron 4 mg tablet,disintegrating 4 mg PO Q6H PRN (Reason: nausea and vomiting) Qty: 14 0RF Discharge Orders: Discharge ED (Routine); Ordered 10/31/22 Ordered By: Manuel Castle Referrals: Rachell Coon FNP [Primary Care Provider] - Discharge Diet: Usual diet Discharge Activity: Increase activity as tolerated Patient Instructions: Urinary Tract Infection in Women (ED) Activity Restrictions/Additional Instructions: Drink plenty of water. Take all of antibiotics as directed. Follow-up with primary care in 1 week for recheck. A culture has been done on your urine and vaginal swab which would take about 3 to 5 days for final results. Follow-up with primary care for final results especially if no improvement is noted. Coding Level of Care Code ED Survey Research Associate for Thomas Cruz
[2022-10-31 20:06] VITALS: BP 129/87; PULSE 62; RESP 16; O2SAT 100
[2022-10-31 20:32] LABS: Bilirubin Urine Neg (Negative); Blood Urine 2+ (Negative); Glucose Urine UA Norm (Normal); Ketones Urine Negative (Negative); Nitrate Urine Negative (Negative); Protein Urine 1+ (Negative); Urine Color Yellow (Yellow); pH Urine 6 (5-7)
[2022-10-31 20:33] LABS: Add Urine Culture? No; Add Urine Microscopic? YES; Bacteria Urine 1+ /hpf; Leukocyte Esterase Urine Negative (Negative); Mucus Urine 2+ /hpf; Squamous Epithelial Cell Urine 0-4 /hpf (0-5); Urobilinogen Urine Norm (Negative)
[2022-10-31] MEDS: HYDROcodone-acetaminophen 5-325 mg Tablet 1 TAB PO (20:40)
[2022-10-31 21:00] VITALS: BP 105/66; PULSE 75; RESP 16; O2SAT 100
[2022-10-31] MEDS: doxycycline 100 mg Tablet PO (21:17)
[2022-10-31] MEDS: cefTRIAXone 500 MG in water for injection-sterile 1 ML 100 MG IM (21:17)
[2022-11-02 14:53] LABS: Chlamydia Trachomatis RNA TMA NOT DETECTED (NOT DETECTED); Neisseria Gonorrhoeae RNA, TMA NOT DETECTED (NOT DETECTED)
== END 2022-10-31 21:50 | disposition home or self-care (01) ==
PROVIDERS: Emergency Medicine; Emergency Provider Nurse Practitioner Family; PCP Registered Nurse
DX: N34.2 Other urethritis (principal)
CPT/HCPCS: 36415; 81001; 81025; 87070; 87205; 87210; 87491; 87591; 96372; 99284; J0696

== ENCOUNTER 2023-08-31 10:58 | Emergency (ER) | payer SELFPAY ==
[2023-08-31 11:09] VITALS: BP 101/61; PULSE 73; RESP 16; TEMP 36.8; O2SAT 96
--- NOTE | 2023-08-31 11:16 | XRR_ITS ---
PROCEDURE INFORMATION: Exam: XR Chest Exam date and time: 08/31/2023 11:34 AM Age: 43 years old Clinical indication: Cough and dyspnea and shortness of breath; Patient HX: SOB; Sore throat; Cough TECHNIQUE: Imaging protocol: Radiologic exam of the chest. Views: 2 views. COMPARISON: CR XR chest 1V [id number] 02/07/2018 8:30 PM FINDINGS: Lungs: Unremarkable. No consolidation. Pleural spaces: Unremarkable. No pleural effusion. No pneumothorax. Heart/Mediastinum: Unremarkable. No cardiomegaly. Bones/joints: Unremarkable. XR/XR chest 2V* [id number] IMPRESSION: No acute findings.
--- NOTE | 2023-08-31 11:20 | ED_ITS ---
HPI - General Adult 2 General: Chief complaint: General Medical Stated complaint: sob Time Seen by Provider: 08/31/23 11:09 History of Present Illness: The patient presents with a chief complaint of severe back pain and fever, which was measured at 102.5?F this morning. The patient reports taking Tylenol and ibuprofen at 8:30 AM for symptom relief. The patient has a medical history of seizures and is currently taking Depakote for seizure management. The patient's symptoms began on Saturday, accompanied by a cough and shortness of breath. The patient admits to vaping. The patient denies any pain or difficulty urinating, constipation, abnormal vaginal bleeding or discharge, and muscle or joint pain. The patient reports that the back pain is not a new symptom. The patient confirms recent exposure to sick individuals and being in public spaces. Review of Systems 2 General: Reports: 10 or more systems reviewed and unremarkable except in HPI and below PFSH ED 2 PFSH: Surgical History (Updated 06/25/20 @ 06:10 by Lorenzo Day DO) H/O tubal ligation Physical Exam 2 Const: COMMON NORMALS: no acute distress, patient oriented x3, healthy appearing, alert and well nourished HENMT: COMMON NORMALS: normocephalic HEAD & SCALP: normocephalic Eye: COMMON NORMALS: EOMs intact bilaterally Neck/C-Spine: COMMON NORMALS: full ROM and supple Resp: COMMON NORMALS: normal respiratory effort, No retractions and clear to auscultation bilaterally AUSCULTATION: clear to auscultation bilaterally Cardio: COMMON NORMALS: regular rate, regular rhythm, No gallops present (Cardio) and No murmurs present (Cardio) RATE: regular rate RHYTHM: r egular rhythm GI: COMMON NORMALS: Soft to palpation and non-tender PALPATION: Yes Soft to palpation Extremity: GENERAL: Yes normal exam except as noted Neuro: COMMON NORMALS: patient oriented x3 SENSORIUM/ORIENTATION: Yes alert Skin: COMMON NORMALS: no rashes or lesions noted GENERAL SKIN EXAM: no rashes or lesions noted Course 2 Vital Signs: Vital signs: Vital Signs Temperature 98.3 F 08/31/23 11:09 Pulse Rate 72 08/31/23 11:28 Respiratory Rate 16 08/31/23 11:09 Blood Pressure 101/61 08/31/23 11:28 Pulse Oximetry 94 08/31/23 11:28 Oxygen Delivery Me thod Room Air 08/31/23 11:28 MDM - General Adult Medical Decision Making 43-year-old female presents to the emergency department for cough, shortness of breath, and persistent low back pain. Patient's physical exam globally normal. Radiology and laboratory exams consistent with influenza a. Patient discharged home with return precautions. Discussed with the patient supportive care with her influenza. Patient discharged home in stable condition. Differential Diagnosis Acute pneumonia, viral illness, seasonal allergies Lab Data 08/31/23 11:55 08/31/23 11:55 Radiology Impressions Chest X-Ray 08/31/23 11:16 IMPRESSION: No acute findings. Laboratory Results WBC 5.44 10^3/uL (3.29-11.43) 08/31/23 11:55 RBC 4.96 10^6/uL (3.85-5.65) 08/31/23 11:55 Hgb 11.50 g/dL (11.27-16.99) 08/31/23 11:55 Hct 36.9 % (36-47) 08/31/23 11:55 MCV 74.4 fl (85-98) L 08/31/23 11:55 MCH 23.2 pg (27-33) L 08/31/23 11:55 MCHC 31.2 g/dL (30-55) 08/31/23 11:55 RDW 27.6 % (12.1-15.1) H 08/31/23 11:55 Plt Count 186 10^3/cmm (157-399) 08/31/23 11:55 MPV 10.3 fL (7.4-10.4) 08/31/23 11:55 Neut % (Auto) 78.4 % 08/31/23 11:55 Lymph % (Auto) 12.7 % 08/31/23 11:55 [place] % (Auto) 8.3 % 08/31/23 11:55 Eos % (Auto) 0.0 % 08/31/23 11:55 Baso % (Auto) 0.4 % 08/31/23 11:55 Neut # (Auto) 4.27 10^3/uL (1.8-7.7) 08/31/23 11:55 Lymph # (Auto) 0.7 10^3/uL (0.8-4.8) L 08/31/23 11:55 [place] # (Auto) 0.5 10^3/uL (0.2-0.9) 08/31/23 11:55 Eos # (Auto) 0.0 10^3/uL (0.0-0.8) 08/31/23 11:55 Baso # (Auto) 0.0 10^3/uL (0.0-0.1) 08/31/23 11:55 Nucleated RBC % (auto) 0 % 08/31/23 11:55 Nucleated RBCs # 0.0 /100WBC 08/31/23 11:55 Sodium 136 mmol/L (136-145) 08/31/23 11:55 Potassium 5.3 mmol/L (3.5-5.1) H 08/31/23 11:55 Chloride 102 mmol/L (98-107) 08/31/23 11:55 Carbon Dioxide 26 mmol/L (22-29) 08/31/23 11:55 Anion Gap 13.3 (5-19) 08/31/23 11:55 BUN 10 mg/dL (6-20) 08/31/23 11:55 Creatinine 0.9 mg/dL (0.5-0.9) 08/31/23 11:55 GFR Calculation 68.7 mL/min (90-130) L 08/31/23 11:55 Glucose 137 mg/dL (65-115) H 08/31/23 11:55 Calculated Osmolality 283 mOsm/kg (285-295) L 08/31/23 11:55 Calcium 8.1 mg/dL (8.5-10.5) L 08/31/23 11:55 Total Bilirubin 0.2 mg/dL (0.15-1.2) 08/31/23 11:55 AST 17 U/L (0-32) 08/31/23 11:55 ALT 9 U/L (0-33) 08/31/23 11:55 Alkaline Phosphatase 37 U/L (35-105) 08/31/23 11:55 Total Protein 6.4 g/dL (6.6-8.7) L 08/31/23 11:55 Albumin 3.6 g/dL (3.5-5.2) 08/31/23 11:55 Globulin 2.8 g/dL (1.3-4.6) 08/31/23 11:55 Influenza Type A Ag positive (Negative) H 08/31/23 11:33 Influenza Type B Ag negative (Negative) 08/31/23 11:33 SARS-CoV-2 Ag (Rapid) negative (Negative) 08/31/23 11:33 All radiology interpretation(s) finalized by discharge Discharge Plan Discharge Patient Disposition: Home Clinical Impression: Influenza A Condition: Stable Prescriptions: No Action acetaminophen [Tylenol] 325 mg Capsule 650 mg PO Q6H PRN (Reason: Pain) Benadryl 25 mg Capsule 25 mg PO TID PRN (Reason: Congestion) ibuprofen 200 mg Tablet 600 mg PO Q6H PRN (Reason: Pain) Mucinex 600 mg Tablet Extended Release 12hr 600 mg PO Q12H PRN (Reason: Congestion) divalproex 500 mg tablet,delayed release (DR/EC) 500 mg PO BID [id number] 50-325-40 mg tablet 1 tab PO TID PRN (Reason: Headache) ondansetron 8 mg tablet,disintegrating 8 mg PO Q8H PRN (Reason: Nausea And Vomiting) baclofen 10 mg tablet 10 mg PO TID PRN (Reason: Pain) FeroSul 325 mg (65 mg iron) tablet 325 mg PO DAILY Discharge Orders: Discharge ED (Routine); Ordered 08/31/23 Ordered By: Sourav Law Referrals: Anisa Pan DO [Primary Care Provider] - Discharge Diet: Advance as tolerated Discharge Activity: Increase activity as tolerated Patient Instructions: Influenza (ED), Opioid Safety, Pain Management Coding Level of Care Code ED Fish Hatchery Supervisor for Thomas Cruz
[2023-08-31 11:28] VITALS: BP 101/61; PULSE 72; O2SAT 94
[2023-08-31 12:01] LABS: Basophils % 0.4 %; Hematocrit 36.9 % (36-47); Lymphocytes # 0.7 10^3/uL (0.8-4.8); Lymphocytes % 12.7 %; Mean Corpuscular HGB Conc 31.2 g/dL (30-55); Mean Corpuscular Hemoglobin 23.2 pg (27-33); Mean Corpuscular Volume 74.4 fl (85-98); Mean Platelet Volume 10.3 fL (7.4-10.4); Monocytes # 0.5 10^3/uL (0.2-0.9); Monocytes % 8.3 %; Neutrophils # 4.27 10^3/uL (1.8-7.7); Neutrophils % 78.4 %; Nucleated Red Blood Cells % 0 %; Platelet Count 186 10^3/cmm (157-399); Red Blood Count 4.96 10^6/uL (3.85-5.65); Red Cell Distribution Width 27.6 % (12.1-15.1); White Blood Count 5.44 10^3/uL (3.29-11.43)
[2023-08-31 12:03] LABS: Influenza A by IFA positive (Negative); Influenza B by IFA negative (Negative); SARS Covid-2 Antigen negative (Negative)
[2023-08-31 12:23] LABS: Alanine Aminotransferase 9 U/L (0-33); Albumin Level 3.6 g/dL (3.5-5.2); Alkaline Phosphatase 37 U/L (35-105); Anion Gap 13.3 (5-19); Aspartate Amino Transferase 17 U/L (0-32); Blood Urea Nitrogen 10 mg/dL (6-20); Calcium 8.1 mg/dL (8.5-10.5); Carbon Dioxide 26 mmol/L (22-29); Chloride 102 mmol/L (98-107); Creatinine Clr Calc Pharmacy 67.8458; Globulin 2.8 g/dL (1.3-4.6); Glomerular Filtration Rate 68.7 mL/min (90-130); Glucose 137 mg/dL (65-115); Osmolality Calculated 283 mOsm/kg (285-295); Potassium 5.3 mmol/L (3.5-5.1); Sodium 136 mmol/L (136-145); Total Bilirubin 0.2 mg/dL (0.15-1.2); Total Protein 6.4 g/dL (6.6-8.7)
[2023-08-31] MEDS: lactated ringers 1,000 ML 999 ML IV (12:25)
[2023-08-31] MEDS: ondansetron 2 mg/ML SDV 2 mL 4 MG IVP (12:32)
[2023-08-31 13:09] VITALS: BP 101/61; PULSE 72; O2SAT 89
[2023-08-31 13:26] VITALS: BP 101/61; PULSE 72; RESP 16; TEMP 36.8; O2SAT 89
== END 2023-08-31 13:33 | disposition home or self-care (01) ==
PROVIDERS: Emergency Provider General Practice; PCP Family Medicine
DX: J10.1 Influenza due to other identified influenza virus with other respiratory manifestations (principal); Z11.52 Encounter for screening for COVID-19
CPT/HCPCS: 71046; 80053; 85025; 87426; 87804; 96361; 96374; 99284; J2405; J7120